=== PATIENT | male | born 1970 | race Caucasian/White ===

== ENCOUNTER 2020-02-23 16:59 | Emergency (ER) | payer OTHER ==
[~2020-02-23] VITALS: Ht 185.4 cm; Wt 70.3 kg
[2020-02-23] MEDS ORDERED: AUGMENTIN 500-1 EACH PO (17:27)
[2020-02-23 17:52] VITALS: BP 136/83
== END 2020-02-23 17:53 | disposition home or self-care (01) ==
LOC: M.ERS 16:59
DX: S61.214A Laceration without foreign body of right ring finger without damage to nail, initial encounter (principal); F17.210 Nicotine dependence, cigarettes, uncomplicated; W54.0XXA Bitten by dog, initial encounter; Y93.89 Activity, other specified; Y92.89 Other specified places as the place of occurrence of the external cause; Y99.8 Other external cause status